=== PATIENT | female | born 2000 | race Caucasian/White ===

== ENCOUNTER 2022-09-05 16:59 | Emergency (ER) | payer OTHER ==
[~2022-09-05] VITALS: Ht 165.1 cm; Wt 56.7 kg
[2022-09-05] MEDS ORDERED: ACETAMINOPHEN ES 500 MG TABLET PO ONE (17:30)
[2022-09-05] MEDS ORDERED: KETOROLAC TROMETHAMINE 15 MG INJ IVP ONE (17:30)
[2022-09-05 17:41] LABS: HEMATOCRIT 40.6 % (31.2-41.9); MEAN CORPUSCULAR HEMOGLOBIN 30.6 uug (24.7-32.8); MEAN CORPUSCULAR VOLUME 90.5 fL (75.5-95.3); PLATELET COUNT (AUTO) 291 K/uL (179-408)
[2022-09-05] MEDS ORDERED: KETOROLAC TROMETHAMINE 15 MG INJ ONE (17:42)
[2022-09-05] MEDS ORDERED: ACETAMINOPHEN ES 500 MG TABLET ONE (17:42)
--- NOTE | 2022-09-05 17:54 | NUR ---
Pt seen by . Safety measures in place. Will continue to monitor.
[2022-09-05 17:55] LABS: CARBON DIOXIDE 26 mmol/L (21-32); CHLORIDE 104 mmol/L (98-107); CREATININE 0.9 mg/dL (0.6-1.3); GLUCOSE 92 mg/dL (74-106); UREA NITROGEN, BLOOD 15 mg/dL (7-18)
[2022-09-05] MEDS ORDERED: IBUP-1955 PO (18:04)
[2022-09-05 18:43] LABS: *URINE HCG, QUAL NEGATIVE (NEGATIVE)
[2022-09-05 18:51] VITALS: BP 130/77
--- NOTE | 2022-09-05 18:51 | NUR ---
Patient discharged to home in stable condition. Written and verbal after care instructions given. Patient verbalizes understanding of instructions. Stressed follow up or return to ER for worsening s/s.
== END 2022-09-05 18:53 | disposition home or self-care (01) ==
LOC: ER 17:02
DX: R07.89 Other chest pain (principal); Z87.891 Personal history of nicotine dependence; Z88.1 Allergy status to other antibiotic agents; Z79.1 Long term (current) use of non-steroidal anti-inflammatories (NSAID)
CPT/HCPCS: 99285; 96374; 71045; 80048; 84703; 85025; 85379; 84484; 36415; 93005; J1885; A4663; A9150